=== PATIENT | female | born 1990 | race Caucasian/White ===

== ENCOUNTER 2017-03-03 07:52 | Outpatient (CLI) | payer OTHER | END 2017-03-03 14:37 | disposition home or self-care (01) | LOC: MRI 07:52 | DX: D45 Polycythemia vera (principal); D47.3 Essential (hemorrhagic) thrombocythemia; I63.6 Cerebral infarction due to cerebral venous thrombosis, nonpyogenic; D68.61 Antiphospholipid syndrome; D68.62 Lupus anticoagulant syndrome; E72.11 Homocystinuria; E72.12 Methylenetetrahydrofolate reductase deficiency; E04.0 Nontoxic diffuse goiter | CPT/HCPCS: 70553; A9579 ==

== ENCOUNTER 2017-04-21 10:09 | Outpatient (CLI) | payer OTHER | END 2017-04-21 16:09 | disposition home or self-care (01) | LOC: SONOGRAMA 10:09 | DX: E04.2 Nontoxic multinodular goiter (principal) ==